=== PATIENT | female | born 1955 | race Caucasian/White ===

== ENCOUNTER 2022-01-21 00:33 | Emergency (ER) | payer MEDICARE ==
[~2022-01-21] VITALS: Ht 157.5 cm; Wt 6.7 kg
[2022-01-21 05:57] VITALS: BP 128/74
[2022-01-21] MEDS ORDERED: TRAM50TA2 PO (06:37)
[2022-01-21] MEDS ORDERED: traMADol 50 MG TAB PO ONE (06:40)
== END 2022-01-21 06:51 | disposition home or self-care (01) ==
LOC: M ED 00:33
DX: S52.122A Displaced fracture of head of left radius, initial encounter for closed fracture (principal); W01.0XXA Fall on same level from slipping, tripping and stumbling without subsequent striking against object, initial encounter; Y92.9 Unspecified place or not applicable; Y93.41 Activity, dancing; Y99.9 Unspecified external cause status; Z88.2 Allergy status to sulfonamides

== ENCOUNTER → 2022-01-28 | Outpatient (CLI) | payer MEDICARE ==
[~2022-01-28] MED LIST: GLIP2.5T2; LISI20TA33 PO; OMEP-173 PO; PERC5TAB12 PO; SIMV20TA22 PO; TRAM50TA2 PO
== END ==
LOC: M LABSMTC 12:01
PROVIDERS: ATTEND Anesthesiology
DX: Z01.812 Encounter for preprocedural laboratory examination (principal); Z20.822 Contact with and (suspected) exposure to COVID-19

== ENCOUNTER 2022-01-29 07:26 | Day surgery (SDC) | payer MEDICARE ==
[~2022-01-29] VITALS: Ht 157.5 cm; Wt 69.4 kg
[~2022-01-29 07:26] MED LIST changes: +LIDOCAINE 2% 100MG/5ML SDV (FOR ANES.) As Ordered ONE; +MIDAZOLAM INJ 2MG/2ML VIAL (J2250 PER 1MG) As Ordered ONE; +ONDANSETRON 4MG 2ML VIAL As Ordered ONE; -PERC5TAB12 PO; +ROCURONIUM BROMIDE 50 MG/5 ML VIAL As Ordered ONE; +dexameTHASONE 4 MG/ML 1ML VIAL (J1100 PER 1MG) As Ordered ONE; +fentaNYL 100 MCG/2 ML INJECTION As Ordered ONE; +propofoL 200 MG/20 ML VIAL As Ordered ONE
[2022-01-29] MEDS ORDERED: dexameTHASONE 10MG/1ML VIAL PRES.FREE (J1100 PER 1MG) PN ONE (08:20)
[2022-01-29] MEDS ORDERED: LIDOCAINE 1% SDV 5ML VIAL PN ONE (08:20)
[2022-01-29] MEDS ORDERED: ROPIvacaine 0.5% 30ML INJECTION (J2795 PER 1MG) PN ONE (08:20)
[2022-01-29] MEDS ORDERED: fentaNYL 100 MCG/2 ML INJECTION IV PRN ×2 (08:20→11:50)
[2022-01-29] MEDS ORDERED: MIDAZOLAM INJ 2MG/2ML VIAL (J2250 PER 1MG) IV PRN (08:20)
[2022-01-29] MEDS ORDERED: EPINEPHrine INJ 1 MG/ML 1ML AMP PN ONE (08:20)
[2022-01-29] MEDS ORDERED: BACITRACIN OINTMENT 30GM TUBE As Ordered ONE (09:44)
[2022-01-29] MEDS ORDERED: BUPIVACAINE HCL 0.25% 30ML VIAL As Ordered ONE (09:44)
[2022-01-29] MEDS ORDERED: ePHEDrine SULFATE 25 MG/5 ML(5MG/ML) SYRINGE As Ordered ONE (10:05)
[2022-01-29] MEDS ORDERED: ceFAZolin 2 GM/D5W 50 ML IV BAG (J0690 PER 500MG) As Ordered ONE (10:11)
[2022-01-29] MEDS ORDERED: LR 1,000 ML IV SCH (11:50)
[2022-01-29] MEDS ORDERED: ONDANSETRON 4MG 2ML VIAL IV PRN (11:50)
[2022-01-29] MEDS ORDERED: METOCLOPRAMIDE INJ 10MG/2ML VIAL (J2765 PER 1) IV PRN (11:50)
[2022-01-29] MEDS ORDERED: oxyCODONE 5MG TAB PO PRN (11:50)
[2022-01-29] MEDS ORDERED: PERC5TAB12 PO (11:55)
[2022-01-29 13:40] VITALS: BP 137/61
== END 2022-01-29 13:48 | disposition home or self-care (01) ==
LOC: M SDC 07:26
PROVIDERS: ATTEND Orthopaedic Surgery Hand Surgery
DX: S52.532A Colles' fracture of left radius, initial encounter for closed fracture (principal); W19.XXXA Unspecified fall, initial encounter; Y93.41 Activity, dancing; Y92.89 Other specified places as the place of occurrence of the external cause; Y99.9 Unspecified external cause status; I10 Essential (primary) hypertension; E11.9 Type 2 diabetes mellitus without complications; E78.5 Hyperlipidemia, unspecified; K21.9 Gastro-esophageal reflux disease without esophagitis; Z85.3 Personal history of malignant neoplasm of breast; Z92.21 Personal history of antineoplastic chemotherapy; Z79.899 Other long term (current) drug therapy; Z79.84 Long term (current) use of oral hypoglycemic drugs; Z88.2 Allergy status to sulfonamides
CPT/HCPCS: 20680; 25607; 64418; 76000; 93005; C1713; J0171; J0690; J1100; J2250; J2405; J2795; J3010

== ENCOUNTER → 2022-02-08 | Outpatient (CLI) | payer MEDICARE ==
[~2022-02-08] MED LIST changes: -LIDOCAINE 2% 100MG/5ML SDV (FOR ANES.) As Ordered ONE; -MIDAZOLAM INJ 2MG/2ML VIAL (J2250 PER 1MG) As Ordered ONE; -ONDANSETRON 4MG 2ML VIAL As Ordered ONE; +PERC5TAB12 PO; -ROCURONIUM BROMIDE 50 MG/5 ML VIAL As Ordered ONE; -dexameTHASONE 4 MG/ML 1ML VIAL (J1100 PER 1MG) As Ordered ONE; -fentaNYL 100 MCG/2 ML INJECTION As Ordered ONE; -propofoL 200 MG/20 ML VIAL As Ordered ONE
== END ==
LOC: M SOG 07:51
PROVIDERS: ATTEND Orthopaedic Surgery Hand Surgery
DX: S52.501D Unspecified fracture of the lower end of right radius, subsequent encounter for closed fracture with routine healing (principal)

== ENCOUNTER → 2022-03-20 | Outpatient (CLI) | payer MEDICARE | LOC: M SOG 08:05 | PROVIDERS: ATTEND Orthopaedic Surgery Hand Surgery | DX: Z53.9 Procedure and treatment not carried out, unspecified reason (principal) ==

== ENCOUNTER 2024-08-12 09:47 | Day surgery (SDC) | payer MEDICARE ==
[~2024-08-12] VITALS: Ht 157.5 cm; Wt 68.9 kg
[~2024-08-12 09:47] MED LIST changes: -GLIP2.5T2; +GLIP2.5T2 PO; +LIDOCAINE 2% 100MG/5ML SDV (FOR ANES.) As Ordered ONE; +propofoL 200 MG/20 ML VIAL As Ordered ONE
[2024-08-12 10:19] VITALS: TEMP 97.2
[2024-08-12 10:45] VITALS: BP 125/60; O2SAT 96
== END 2024-08-12 10:45 | disposition home or self-care (01) ==
LOC: M OPP 09:47
PROVIDERS: ATTEND Internal Medicine Gastroenterology
DX: Z12.11 Encounter for screening for malignant neoplasm of colon (principal); Z80.0 Family history of malignant neoplasm of digestive organs; K63.5 Polyp of colon; K64.0 First degree hemorrhoids; K57.30 Diverticulosis of large intestine without perforation or abscess without bleeding; I10 Essential (primary) hypertension; E78.00 Pure hypercholesterolemia, unspecified; E11.9 Type 2 diabetes mellitus without complications; K21.9 Gastro-esophageal reflux disease without esophagitis; Z85.3 Personal history of malignant neoplasm of breast; Z88.2 Allergy status to sulfonamides; Z79.84 Long term (current) use of oral hypoglycemic drugs; Z79.899 Other long term (current) drug therapy